=== PATIENT | male | born 1995 | race African-American/Black ===

== ENCOUNTER 2017-10-07 15:38 | Emergency (ER) | payer OTHER ==
[~2017-10-07] VITALS: Ht 180.3 cm; Wt 56.4 kg
[2017-10-07 15:44] VITALS: Ht 180.3 cm; Wt 56.4 kg
[2017-10-07] MEDS ORDERED: SODIUM CHLORIDE 0.9% 1000ML 1,000 ML IV STA (16:08)
[2017-10-07] MEDS ORDERED: QUET1TAB34 PO (16:26)
[2017-10-07] MEDS ORDERED: FLUO40CA8 PO (16:26)
--- NOTE | 2017-10-07 16:27 | EMERGENCY ROOM VISIT NOTE ---
History Report prepared by Arnel: Flori Arango Under the Supervision of: Dr. Romel Angel M.D. First contact with patient: 15:55 Chief Complaint: FLU LIKE SX Stated Complaint: DEHYDRATION, FLU LIKE SX, ANXIETY History of Present Illness The patient is a 22 year old male who presents to the Emergency Room with complaints of constant flu-like symptoms/possible overdose beginning two days ago. The patient states he had diarrhea, sorethroat, vomiting, fever of 102 degrees Fahrenheit over the past two days. The patient took ibuprofen for his fever. The patient states he has been having worsening anxiety over the past week. He states that when he gets "worked up" he starts to vomit. He states he has been "worked up" and vomiting today and he believes he is dehydrated. The patient states he cheated on his girlfriend and he has been "really worked up" about it today. The patient states he did nitrous oxide and was "huffing air duster" two days ago. He states he was "huffing" recreationally. He states he "huffed" one can two days ago. The patient denies any alcohol use. The patient reports taking his Prozac as prescribed. He states he took 6 Xanax over the course of a day a week ago. The patient states he smoked marijuana in the past 48 hours. He denies any heroin or cocaine use. He denies any suicidal or homicidal ideations. He denies any black stools or blood in vomit. Source of History: patient Onset: two days ago Position: other (generalized) Quality: other (flu-like symptoms) Timing: constant Associated Symptoms: + fevers, + sorethroat, + vomiting, + diarrhea Review of Systems See HPI for pertinent positives and negatives. A total of ten systems were reviewed and were otherwise negative. Past Medical & Surgical Medical Problems: (1) Anxiety Family History Patient reports no known family medical history. Social History Smoking Status: Never Smoker Alcohol Use: none Drug Use: marijuana Marital Status: in relationship Occupation Status: student Current/Historical Medications Scheduled Fluoxetine (Prozac), 40 MG PO DAILY Ondasetron Odt (Zofran Odt), 4 MG SL Q8 Oseltamivir (Tamiflu), 75 MG PO BID Scheduled PRN Quetiapine Fumarate (Seroquel), 100 MG PO HS PRN for Sleep Allergies Uncoded Allergies: SUN SCREEN (Allergy, Intermediate, Hives, 10/07/17) Banana Boat Sunscreen Physical Exam Vital Signs Date Time Temp Pulse Resp B/P (MAP) Pulse Ox O2 Delivery O2 Flow Rate FiO2 10/07/17 18:57 37.2 83 18 142/80 99 Room Air 10/07/17 17:26 92 18 145/78 99 Room Air 10/07/17 15:44 36.8 96 16 150/39 99 Room Air Physical Exam Physical Exam GENERAL: He is oriented to person, place, and time. He appears well-developed and well-nourished. He does not appear distressed. ____ HENT: Exam performed. Head: Normocephalic and atraumatic. Right Ear: External ear normal. No mastoid tenderness. Left Ear: External ear normal. No mastoid tenderness. Mouth/Throat: The oropharynx is clear and moist. No trismus in the jaw. No dental abscesses or uvula swelling. No oropharyngeal exudate or tonsillar abscesses. ____ EYES: Conjunctivae and EOM are normal. Pupils are equal, round, and reactive to light. Right eye exhibits no discharge. Left eye exhibits no discharge. No scleral icterus. ____ NECK: Normal range of motion. Neck supple. No JVD present. No spinous process tenderness present. No carotid bruit present. No rigidity. No tracheal deviation and normal range of motion present. No Brudzinski's sign and no Kernig 's sign noted. ____ CV: Normal rate, regular rhythm, normal heart sounds and intact distal pulses. There is no peripheral edema. Palpable radial pulses bue. ____ PULM/CHEST: Effort normal and breath sounds normal. No respiratory distress. No stridor. He has no wheezes. He has no rales. Chest Wall: He exhibits no tenderness. ____ ABD: The abdomen is soft. Bowel sounds are normal. He has no distension. No mass is present. There is no tenderness. There is no rebound, no guarding, no Goldberg's sign and no tenderness at McBurney's point. Rovsig negative MUSC/SKEL: Normal range of motion. There is no peripheral edema, tenderness or deformity. LYMPH: No cervical adenopathy. ____ NEURO: He is alert and oriented to person, place, and time. He has normal strength. No cranial nerve deficit or sensory deficit. Coordination and gait normal. GCS eye subscore is 4. GCS verbal subscore is 5. GCS motor subscore is 6. cerbellar tests wnl. ____ SKIN: Skin is warm and dry. He is not diaphoretic. ____ PSYCH: He is anxious and evading direct questions about drug abuse. ____ Medical Decision & Procedures ER Provider Diagnostic Interpretation: Radiology results as stated below per my review and radiologist interpretation: ABDOMEN 2VIEW W/PA CHEST RTN FINDINGS: Cardiomediastinal and hilar silhouettes are within normal limits. No pneumothorax, pleural effusion, focal airspace consolidation or overt pulmonary edema. Bones of the chest appear grossly intact. No pneumoperitoneum on the upright projection. No pneumatosis. Bowel gas pattern is nonobstructive. No urolith identified. IMPRESSION: 1. No acute cardiopulmonary process. 2. Nonobstructive bowel gas pattern without pneumoperitoneum. The above report was generated using voice recognition software. It may contain grammatical, syntax or spelling errors. Electronically signed by: Navjot Schumacher M.D. Laboratory Results 10/07/17 16:19 Red Blood Count 5.15, Mean Corpuscular Volume 85.0, Mean Corpuscular Hemoglobin 30.9, Mean Corpuscular Hemoglobin Concent 36.3, Mean Platelet Volume 11.7, Neutrophils (%) (Auto) 82.7, Lymphocytes (%) (Auto) 5.4, Monocytes (%) (Auto) 11.6, Eosinophils (%) (Auto) 0.0, Basophils (%) (Auto) 0.1, Neutrophils # (Auto ) 6.89, Lymphocytes # (Auto) 0.45, Monocytes # (Auto) 0.97, Eosinophils # (Auto ) 0.00, Basophils # (Auto) 0.01 10/07/17 16:19 10/07/17 17:16 Test 10/07/17 00:00 10/07/17 16:19 10/07/17 16:47 10/07/17 17:16 Influenza Type A Antigen POS for Influ A (NEG) Influenza Type B Antigen Neg for Influ B (NEG) White Blood Count 8.34 K/uL (4.8-10.8) Red Blood Count 5.15 M/uL (4.7-6.1) Hemoglobin 15.9 g/dL (14.0-18.0) Hematocrit 43.8 % (42-52) Mean Corpuscular Volume 85.0 fL (80-100) Mean Corpuscular Hemoglobin 30.9 pg (25-34) Mean Corpuscular Hemoglobin Concent 36.3 g/dl (32-36) Platelet Count 229 K/uL (130-400) Mean Platelet Volume 11.7 fL (7.4-10.4) Neutrophils (%) (Auto) 82.7 % Lymphocytes (%) (Auto) 5.4 % Monocytes (%) (Auto) 11.6 % Eosinophils (%) (Auto) 0.0 % Basophils (%) (Auto) 0.1 % Neutrophils # (Auto) 6.89 K/uL (1.4-6.5) Lymphocytes # (Auto) 0.45 K/uL (1.2-3.4) Monocytes # (Auto) 0.97 K/uL (0.11-0.59) Eosinophils # (Auto) 0.00 K/uL (0-0.5) Basophils # (Auto) 0.01 K/uL (0-0.2) RDW Standard Deviation 38.0 fL (36.4-46.3) RDW Coefficient of Variation 12.3 % (11.5-14.5) Immature Granulocyte % (Auto) 0.2 % Immature Granulocyte # (Auto) 0.02 K/uL (0.00-0.02) Anion Gap 10.0 mmol/L (3-11) Est Creatinine Clear Calc Drug Dose 87.9 ml/min Estimated GFR () 115.7 Estimated GFR (Non- 99.8 BUN/Creatinine Ratio 10.8 (10-20) Lactic Acid Level 1.5 mmol/L (0.4-2.0) Calcium Level 9.4 mg/dl (8.5-10.1) Total Bilirubin 0.7 mg/dl (0.2-1) Alanine Aminotransferase (ALT/SGPT) 27 U/L (12-78) Alkaline Phosphatase 67 U/L (45-117) Total Protein 8.5 gm/dl (6.4-8.2) Albumin 4.0 gm/dl (3.4-5.0) Globulin 4.5 gm/dl (2.5-4.0) Albumin/Globulin Ratio 0.9 (0.9-2) Lipase 83 U/L (73-393) Chemistry Specimen Hemolysis Salicylates Level < 1.7 mg/dl (2.8-20) Acetaminophen Level < 2 ug/ml (10-30) Ethyl Alcohol mg/dL < 3.0 mg/dl (0-3) Urine Opiates Screen NEG (NEG) Urine Methadone, Qualitative NEG (NEG) Urine Barbiturates NEG (NEG) Urine Phencyclidine (PCP) Level NEG (NEG) Ur Amphetamine/Methamphetamine NEG (NEG) MDMA (Ecstasy) Screen NEG (NEG) Urine Benzodiazepines Screen POS (NEG) Urine Cocaine Metabolite NEG (NEG) Urine Marijuana (THC) POS (NEG) Prothrombin Time 11.4 SECONDS (9.0-12.0) Prothromb Time International Ratio 1.1 (0.9-1.1) Activated Partial Thromboplast Time 38.5 SECONDS (21.0-31.0) Partial Thromboplastin Ratio 1.5 Aspartate Amino Transf (AST/SGOT) 17 U/L (15-37) Laboratory results reviewed by me Medications Administered Medications (Trade) Dose Ordered Sig/Germania Route Start Time Stop Time Status Last Admin Dose Admin Sodium Chloride 1,000 ml @ 999 mls/hr Q1H1M STAT IV 10/07/17 16:08 10/07/17 17:08 DC 10/07/17 16:41 999 MLS/HR Potassium Chloride (Klor-Con M10) 40 meq NOW STAT PO 10/07/17 18:48 10/07/17 18:49 DC 10/07/17 18:57 40 MEQ ECG Indication: toxicologic Rate (beats per minute): 85 Rhythm: sinus rhythm Findings: no acute ischemic change, no ectopy, other (HI, QRS, QTC within normal limits, No ST elevation or depression) Change: EKG interpreted by me. ED Course 1607: The patient was evaluated in room B8. A complete history and physical exam was performed. 1608: Ordered Sodium Chloride 1000 ml @ 999 mls/hr IV. 1628: The patient consistently keeps changing his stories of when he was "huffing" and whether or not he was abusing his Xanax.Conversation with Kenia from poison control said there are no adverse effects of huffing that should be present greater than 48 hours later she recommends supportive care. 1726: On reassessment, the patient's vital signs are stable. He feels better with IV fluids. I attempted to contact the patient's psychiatrist but he is out of the office. I offered the patient to talk to Mental Health case coordinator here and he declined. The patient is still not exhibiting SI or HI. 1847: Vitals stable, influenza positive, potassium is low will be replaced in the ED prior to discharge. The patient is tolerating PO. He still denies SI and HI. He still does not want to talk to Mental Health case coordinator and will follow up with his psychiatrist on Tuesday. Discharged with Zofran and Tamiflu. DISCHARGE - Plan of care discussed with patient and questions answered. The patient was given both verbal and printed discharge instructions. The patient verbalized understanding and ability to comply. The patient is to seek outpatient follow up as noted in the discharge instructions. The patient verbalized understanding and ability to comply. The patient is discharged in stable condition. The patient was instructed to return for worsening symptoms. Medical Decision 1628: The patient consistently keeps changing his stories of when he was "huffing" and whether or not he was abusing his Xanax.Conversation with Kenia from poison control said there are no adverse effects of huffing that should be present greater than 48 hours later she recommends supportive care. 1726: On reassessment, the patient's vital signs are stable. He feels better with IV fluids. I attempted to contact the patient's psychiatrist but he is out of the office. I offered the patient to talk to Mental Health case coordinator here and he declined. The patient is still not exhibiting SI or HI. 1847: Vitals stable, influenza positive, potassium is low will be replaced in the ED prior to discharge. The patient is tolerating PO. He still denies SI and HI. He still does not want to talk to Mental Health case coordinator and will follow up with his psychiatrist on Tuesday. Discharged with Zofran and Tamiflu. DISCHARGE - Plan of care discussed with patient and questions answered. The patient was given both verbal and printed discharge instructions. The patient verbalized understanding and ability to comply. The patient is to seek outpatient follow up as noted in the discharge instructions. The patient verbalized understanding and ability to comply. The patient is discharged in stable condition. The patient was instructed to return for worsening symptoms. Medication Reconcilliation Current Medication List: was personally reviewed by me Blood Pressure Screening Patient's blood pressure: Elevated blood pressure Blood pressure disposition: Elevated BP felt to be situational Consults Time Called: 1628 Consulting Physician: Kenia from Poison Control Returned Call: 1628 Conversation with Kenia from poison control said there are no adverse effects of huffing that should be present greater than 48 hours later she recommends supportive care. Impression Primary Impression: Influenza-like symptoms Additional Impressions: Hypokalemia Polysubstance abuse Scribe Attestation The scribe's documentation has been prepared under my direction and personally reviewed by me in its entirety. I confirm that the note above accurately reflects all work, treatment, procedures, and medical decision making performed by me. The chart was completed utilizing [employer] Speech voice recognition software. Grammatical errors, random word insertions, pronoun errors, and incomplete sentences are an occasional consequence of this system due to software limitations, ambient noise, and hardware issues. Any formal questions or concerns about the content, text, or information contained within the body of this dictation should be directly addressed to the physician for clarification. Departure Information Dispostion Home / Self-Care Prescriptions Ondasetron Odt (ZOFRAN ODT) 4 Mg Tab 4 MG SL Q8 for Nausea, #6 TAB Prov: Romel Angel M.D. 10/07/17 Oseltamivir (Tamiflu) 75 Mg Cap 75 MG PO BID, #10 CAP Prov: Romel Angel M.D. 10/07/17 Referrals Santi Sinha M.D. (PCP) Forms HOME CARE DOCUMENTATION FORM, IMPORTANT VISIT INFORMATION Patient Instructions Diet High Potassium Dc, ED Drug Abuse General, ED Flu, [facility] Additional Instructions Stop abusing drugs. Follow-up with your primary care physician and your psychiatrist on Tuesday. Problem Qualifiers
[2017-10-07 16:38] LABS: BASO % 0.1 %; BASO ABS # 0.01 K/uL (0-0.2); HEMATOCRIT 43.8 % (42-52); HEMOGLOBIN 15.9 g/dL (14.0-18.0); IG# 0.02 K/uL (0.00-0.02); LYMPH % 5.4 %; LYMPH ABS # 0.45 K/uL (1.2-3.4); MEAN CORPUSCULAR HEMOGLOBIN 30.9 pg (25-34); MEAN CORPUSCULAR HGB CONC 36.3 g/dl (32-36); MEAN PLATELET VOLUME 11.7 fL (7.4-10.4); MONO % 11.6 %; MONO ABS # 0.97 K/uL (0.11-0.59); NEUT % 82.7 %; NEUT ABS # 6.89 K/uL (1.4-6.5); PLATELET COUNT 229 K/uL (130-400); RED CELL DISTRIBUTION WIDTH CV 12.3 % (11.5-14.5); WHITE BLOOD COUNT 8.34 K/uL (4.8-10.8)
[2017-10-07 17:05] LABS: CALCIUM 9.4 mg/dl (8.5-10.1); CREATININE 1.06 mg/dl (0.60-1.40); TOTAL PROTEIN 8.5 gm/dl (6.4-8.2)
[2017-10-07 17:40] LABS: INR 1.1 (0.9-1.1); PTT PATIENT 38.5 SECONDS (21.0-31.0)
--- NOTE | 2017-10-07 17:53 | DIAGNOSTIC IMAGING REPORT ---
ABDOMEN 2VIEW W/PA CHEST RTN HISTORY: 22 years-old Male vomitting cough acute vomiting with cough COMPARISON: None available TECHNIQUE: PA view of the chest with erect and supine views of the abdomen. FINDINGS: Cardiomediastinal and hilar silhouettes are within normal limits. No pneumothorax, pleural effusion, focal airspace consolidation or overt pulmonary edema. Bones of the chest appear grossly intact. No pneumoperitoneum on the upright projection. No pneumatosis. Bowel gas pattern is nonobstructive. No urolith identified. IMPRESSION: 1. No acute cardiopulmonary process. 2. Nonobstructive bowel gas pattern without pneumoperitoneum. The above report was generated using voice recognition software. It may contain grammatical, syntax or spelling errors. Electronically signed by: Navjot Schumacher M.D. 10/07/2017 5:51 PM Dictated Date/Time: 10/07/2017 5:33 PM
[2017-10-07 18:30] LABS: INFLUENZA B ANTIGEN Neg for Influ B (NEG)
[2017-10-07] MEDS ORDERED: POTASSIUM CHLORIDE 10 MEQ TABCR PO STA (18:48)
[2017-10-07] MEDS ORDERED: OSEL75CA12 PO (18:51)
[2017-10-07] MEDS ORDERED: ONDA4TAB10 SL (18:52)
[2017-10-07 18:57] VITALS: BP 142/80; PULSE 83; TEMP 37.2; O2SAT 99
== END 2017-10-07 19:10 | disposition home or self-care (01) ==
LOC: C.EDB 15:40
DX: R19.7 Diarrhea, unspecified (principal); E87.6 Hypokalemia; F19.10 Other psychoactive substance abuse, uncomplicated; J02.9 Acute pharyngitis, unspecified; R11.10 Vomiting, unspecified; R50.9 Fever, unspecified; F41.9 Anxiety disorder, unspecified; F12.90 Cannabis use, unspecified, uncomplicated; Z79.899 Other long term (current) drug therapy